=== PATIENT | male | born 1955 | race American Indian/Alaskan Native ===

== ENCOUNTER 2021-02-18 20:27 | Observation (INO) | payer MEDICARE, SELFPAY ==
[2021-02-18 21:03] LABS: Basophils % (Auto) 0.8 % (0.0-1.8); Eosinophils # (Auto) 0.1 K/mm3 (0.0-0.4); Eosinophils % (Auto) 3.2 % (0.0-4.3); Hematocrit 41.9 % (35.5-45.6); Hemoglobin 13.9 gm/dl (11.8-15.2); Lymphocytes # (Auto) 0.9 K/mm3 (1.2-5.4); Lymphocytes % (Auto) 25.4 % (13.4-35.0); Mean Corpuscular HGB Conc 33 % (32-34); Mean Corpuscular Volume 89 fl (84-94); Monocytes # (Auto) 0.4 K/mm3 (0.0-0.8); Monocytes % (Auto) 11.9 % (0.0-7.3); Platelet Count 179 K/mm3 (140-440); Red Blood Count 4.71 M/mm3 (3.65-5.03)
--- NOTE | 2021-02-18 21:11 | Emergency Department Report ---
ED Neuro Deficit HPI - General Chief Complaint: Neuro Symptoms/Deficit Stated Complaint: NO VISION LEFT EYE, RECENT BP 180/102, SOB Time Seen by Provider: 02/18/21 20:53 Source: patient, family Mode of arrival: Wheelchair Limitations: No Limitations - History of Present Illness Initial Comments: 65-year-old male with past medical history of hypertension, diabetes, CVA x2 presents emergency department with his brother who reports concern for CVA. Mr. Wong states that at 7 AM this morning he woke up feeling weak and dizzy with left-sided visual loss and facial tingling and trouble speaking for unknown duration and type and therefore was unable to cough his brother for help. When his brother did reach home in the afternoon they did phone EMS who came out and evaluated Mr. Marvin Choi as he refused to go to the hospital as they recommended. Later after further discussion it was discovered that he later was can having continued headaches and dizziness and occasional weakness so his brother decided to transport him to the emergency department via private vehicle bleeding is up until this point. Currently his vision has improved but the o ther symptoms are mixed and continues to linger -: Gradual Location: speech, left face Presenting Symptoms: Present: Blurred/Loss of Vision History of same: Yes Place: home Quality: numb, tingling, intermittant Context: gradual onset Associated Symptoms: weakness. denies: confusion, chest pain, cough, fever/chills, loss of appetite, malise, nausea/vomiting - Related Data Home Medications: Home Medications Medication Instructions Recorded Confirmed Last Taken Aspirin [Adult Aspirin] 81 mg PO QDAY 02/20/21 02/20/21 02/19/21 Clopidogrel [Plavix] 75 mg PO QDAY 02/20/21 02/20/21 02/19/21 lisinopriL [Lisinopril] 20 mg PO QDAY 02/20/21 02/20/21 02/19/21 Previous Rx's Medication Instructions Recorded Last Taken Type amLODIPine 10 mg PO QDAY 30 Days #30 tablet 02/20/21 Unknown Rx Allergies/Adverse Reactions: Allergies Allergy/AdvReac Type Severity Reaction Status Date / Time No Known Allergies Allergy Verified 02/18/21 20:40 ED Review of Systems ROS: Stated complaint: NO VISION LEFT EYE, RECENT BP 180/102, SOB Other details as noted in HPI Comment: All other systems reviewed and negative ED Past Medical Hx - Past Medical History Hx Hypertension: Yes Hx CVA: Yes Hx Congestive Heart Failure: No Hx Diabetes: Yes Hx Asthma: No Hx COPD: No Additional medical history: Ulcer, CVA X 2 - Surgical History Past Surgical History?: No Additional Surgical History: Bleeding ulcer - Social History Smoking Status: Former Smoker - Medications Home Medications: Home Medications Medication Instructions Recorded Confirmed Last Taken Type Aspirin [Adult Aspirin] 81 mg PO QDAY 02/20/21 02/20/21 02/19/21 History Clopidogrel [Plavix] 75 mg PO QDAY 02/20/21 02/20/21 02/19/21 History amLODIPine 10 mg PO QDAY 30 Days #30 tablet 02/20/21 Unknown Rx lisinopriL [Lisinopril] 20 mg PO QDAY 02/20/21 02/20/21 02/19/21 History ED Neuro Physical Exam - General Limitations: No Limitations General appearance: alert, in no apparent distress Suspected Stroke: Yes - Head Head exam: Present: atraumatic, normocephalic - Eye Eye exam: Present: normal appearance, PERRL, EOMI, other (Haziness to the left eye with some ptosis noted. No swelling no tenderness). Absent: periorbital swelling, periorbital tenderness Pupils: Present: normal accommodation - ENT ENT exam: Present: normal exam, normal orophraynx, mucous membranes moist - Neck Neck exam: Present: normal inspection - Respiratory Respiratory exam: Present: normal lung sounds bilaterally. Absent: respiratory distress - Cardiovascular Cardiovascular Exam: Present: regular rate, normal rhythm. Absent: systolic murmur, diastolic murmur, rubs, gallop - GI/Abdominal GI/Abdominal exam: Present: soft, normal bowel sounds - Rectal Rectal exam: Present: deferred - Extremities Exam Extremities exam: Present: normal inspection - Back Exam Back exam: Present: normal inspection - Neurological Exam Neurological exam: Present: alert, oriented X3 - NIHSS Assessment Interval: Baseline 1a. Level of Consciousness: alert/keenly responsive 1b. LOC Questions: answers both correctly 1c. LOC Commands: performs tasks correctly 2. Best Gaze: normal 3. Visual: no visual loss 4. Facial Palsy: normal symmetrical movement 5b. Motor Arm Right: no drift 5a. Motor Arm Left: no drift 6a. Motor Leg Left: some gravity effort 6b. Motor Leg Right: no drift 7. Limb Ataxia: absent 8. Sensory: normal 9. Best Language: no aphasia 10. Dysarthria: normal 11. Extinction/Inattention: no abnormality Total Score: 2 Stroke Severity: Minor Stroke - Psychiatric Psychiatric exam: Present: normal affect, normal mood - Skin Skin exam: Present: warm, dry, intact, normal color. Absent: rash, diaphoretic, erythema, pallor, abrasion, ecchymosis ED Course Vital Signs 02/18/21 02/18/21 02/18/21 20:33 20:35 21:20 Temperature 97.6 F 98.9 F Pulse Rate 90 Respiratory 18 Rate Blood Pressure 208/110 Blood Pressure [Right] O2 Sat by Pulse 93 97 Oximetry 02/18/21 02/18/21 02/19/21 22:43 23:15 00:02 Temperature Pulse Rate 83 78 78 Respiratory 14 15 23 Rate Blood Pressure Blood Pressure 214/112 185/94 174/97 [Right] O2 Sat by Pulse 99 97 98 Oximetry 02/19/21 02/19/21 02/19/21 00:25 00:30 00:40 Temperature Pulse Rate 69 68 69 Respiratory 18 19 18 Rate Blood Pressure 174/97 174/97 174/97 Blood Pressure [Right] O2 Sat by Pulse 99 99 97 Oximetry 02/19/21 02/19/21 02/19/21 00:50 01:00 01:01 Temperature Pulse Rate 68 62 62 Respiratory 22 19 20 Rate Blood Pressure 174/97 Blood Pressure 186/99 [Right] O2 Sat by Pulse 99 99 99 Oximetry 02/19/21 02/19/21 02/19/21 01:11 01:21 01:31 Temperature Pulse Rate 61 61 78 Respiratory 19 19 21 Rate Blood Pressure 174/97 174/97 174/97 Blood Pressure [Right] O2 Sat by Pulse 99 97 97 Oximetry 02/19/21 02/19/21 02/19/21 01:41 01:51 02:01 Temperature Pulse Rate 67 67 67 Respiratory 20 11 L 17 Rate Blood Pressure 174/97 180/93 180/93 Blood Pressure [Right] O2 Sat by Pulse 100 99 99 Oximetry 02/19/21 02/19/21 02/19/21 02:11 02:21 02:31 Temperature Pulse Rate 63 60 61 Respiratory 22 19 19 Rate Blood Pressure 180/93 180/93 180/93 Blood Pressure [Right] O2 Sat by Pulse 100 96 96 Oximetry 02/19/21 02/19/21 02/19/21 02:41 02:51 03:17 Temperature Pulse Rate 79 80 64 Respiratory 22 19 18 Rate Blood Pressure 180/93 169/99 Blood Pressure 169/99 [Right] O2 Sat by Pulse 95 97 98 Oximetry - Lab Data Result diagrams: 02/18/21 20:52 02/18/21 20:52 Lab Results 02/18/21 02/18/21 02/18/21 Range/Units 20:52 20:52 20:52 WBC 3.7 L (4.5-11.0) K/mm3 RBC 4.71 (3.65-5.03) M/mm3 Hgb 13.9 (11.8-15.2) gm/dl Hct 41.9 (35.5-45.6) % MCV 89 (84-94) fl MCH 30 (28-32) pg MCHC 33 (32-34) % RDW 14.0 (13.2-15.2) % Plt Count 179 (140-440) K/mm3 Lymph % (Auto) 25.4 (13.4-35.0) % [place] % (Auto) 11.9 H (0.0-7.3) % Eos % (Auto) 3.2 (0.0-4.3) % Baso % (Auto) 0.8 (0.0-1.8) % Lymph # (Auto) 0.9 L (1.2-5.4) K/mm3 [place] # (Auto) 0.4 (0.0-0.8) K/mm3 Eos # (Auto) 0.1 (0.0-0.4) K/mm3 Baso # (Auto) 0.0 (0.0-0.1) K/mm3 Seg Neutrophils % 58.7 (40.0-70.0) % Seg Neutrophils # 2.2 (1.8-7.7) K/mm3 PT 13.4 (12.2-14.9) Sec. INR 0.92 (0.87-1.13) APTT 29.0 (24.2-36.6) Sec. Thrombin Time 18.4 (15.1-19.6) Sec. Sodium (137-145) mmol/L Potassium (3.6-5.0) mmol/L Chloride (98-107) mmol/L Carbon Dioxide (22-30) mmol/L Anion Gap mmol/L BUN (9-20) mg/dL Creatinine (0.8-1.3) mg/dL Estimated GFR ml/min BUN/Creatinine Ratio % Glucose (75-100) mg/dL POC Glucose (70-105) mg/dL Calcium (8.4-10.2) mg/dL Total Creatine Kinase 135 (55-170) units/L CK-MB (CK-2) 2.8 (0.0-4.0) ng/mL CK-MB (CK-2) Rel Index 2.0 (0-4) Troponin T < 0.010 (0.00-0.029) ng/mL 02/18/21 02/18/21 Range/Units 20:52 20:54 WBC (4.5-11.0) K/mm3 RBC (3.65-5.03) M/mm3 Hgb (11.8-15.2) gm/dl Hct (35.5-45.6) % MCV (84-94) fl MCH (28-32) pg MCHC (32-34) % RDW (13.2-15.2) % Plt Count (140-440) K/mm3 Lymph % (Auto) (13.4-35.0) % [place] % (Auto) (0.0-7.3) % Eos % (Auto) (0.0-4.3) % Baso % (Auto) (0.0-1.8) % Lymph # (Auto) (1.2-5.4) K/mm3 [place] # (Auto) (0.0-0.8) K/mm3 Eos # (Auto) (0.0-0.4) K/mm3 Baso # (Auto) (0.0-0.1) K/mm3 Seg Neutrophils % (40.0-70.0) % Seg Neutrophils # (1.8-7.7) K/mm3 PT (12.2-14.9) Sec. INR (0.87-1.13) APTT (24.2-36.6) Sec. Thrombin Time (15.1-19.6) Sec. Sodium 139 (137-145) mmol/L Potassium 4.2 (3.6-5.0) mmol/L Chloride 100.9 (98-107) mmol/L Carbon Dioxide 23 (22-30) mmol/L Anion Gap 19 mmol/L BUN 22 H (9-20) mg/dL Creatinine 1.3 (0.8-1.3) mg/dL Estimated GFR > 60 ml/min BUN/Creatinine Ratio 17 % Glucose 113 H (75-100) mg/dL POC Glucose 99 (70-105) mg/dL Calcium 9.4 (8.4-10.2) mg/dL Total Creatine Kinase (55-170) units/L CK-MB (CK-2) (0.0-4.0) ng/mL CK-MB (CK-2) Rel Index (0-4) Troponin T < 0.010 (0.00-0.029) ng/mL - Radiology Data Radiology results: report reviewed [facility] [address] [place] [address] Cat Scan Report Signed Patient: MARVIN CHOI MR#: [id number] : 1955 Acct:[id number] Age/Sex: 65 / M ADM Date: 02/18/21 Loc: ED Attending Dr: Ordering Physician: JOSHUA MARADIAGA Date of Service: 02/18/21 Procedure(s): CT angio head Accession Number(s): [id number] cc: JOSHUA MARADIAGA CTA NECK WITH CONTRAST HISTORY: Acute neurologic deficit; new intervention COMPARISON: None. TECHNIQUE: Routine CTA of the neck was performed. 3-D/MIP reformats were postprocessed. Percentage stenosis is determined by direct quantitative measurements of diseased internal carotid artery diameter compared with normal distal internal carotid artery reference segments or by criteria similar to NASCET where applicable.All CT scans at this location are performed using CT dose reduction for ALARA by means of automated exposure control CONTRAST: 100 ml of Omnipaque 350 FINDINGS: Aortic arch: No significant abnormality. Cervical vertebral arteries: No significant abnormality. Common carotid arteries: No significant abnormality. Carotid bifurcations: Normal Cervical internal carotid arteries: No significant abnormality. Additional findings: None. IMPRESSION: 1. No significant abnormality. CTA HEAD WITH CONTRAST FINDINGS: CTA Head: Intracranial vertebral arteries: Left vertebral artery is the dominant artery and continues as basilar artery. Distal right vertebral artery narrows significantly after region of right PICA Basilar artery: Atherosclerotic changes in the basilar artery with mild narrowing Posterior cerebral arteries: No significant abnormality. Minimal luminal narrowing in the P2 segment bilaterally Intracranial internal carotid arteries: Normal from skull base to terminus Anterior cerebral arteries: No significant abnormality. Middle cerebral arteries: No significant abnormality. In the branches of the middle cerebral artery in the sylvian fissure, luminal narrowing is seen at multiple sites; there may be chronic branch occlusion with convexity collateral circulation Dural venous sinuses:Not optimally opacified. No significant abnormality. Additional findings: None. IMPRESSION: Atherosclerotic narrowing in the distal intracranial right vertebral artery, P2 segment of both posterior cerebral arteries, branches of middle cerebral artery bilaterally in t he sylvian fissure and to a lesser degree in the basilar artery No large vessel occlusion Signer Name: Marleny Gunter MD Signed: 02/18/2021 11:16 PM Workstation Name: [id number] Transcribed By: BS Dictated By: Marleny Calderon MD Electronically Authenticated By: Marleny Calderon MD Signed Date/Time: 02/18/212315 DD/ 58 TD/TT: [facility] [address] [place] [address] Cat Scan Report Signed Patient: MARVIN CHOI MR#: [id number] : 1955 Acct:[id number] Age/Sex: 65 / M ADM Date: 02/18/21 Loc: ED Attending Dr: Ordering Physician: ALTAF IRWIN MD Date of Service: 02/18/21 Procedure(s): CT head/brain wo con Accession Number(s): [id number] cc: ALTAF IRWIN MD NONENHANCED CT SCAN OF THE HEAD: INDICATION / CLINICAL INFORMATION: 65 years Male; neuro deficits <6hrs or sx present upon awakening. TECHNIQUE: Routine CT head without contrast. All CT scans at this location are performed using CT dose reduction for ALARA by means of automated exposure control. COMPARISON: CT scan of the head from 05/24/2013 FINDINGS: BRAIN / INTRACRANIAL CONTENTS: No intracerebral hemorrhage or stroke mimics No acute hemorrhage, mass effect, midline shift, hydrocephalus, or acute, large territorial infarct. Encephalomalacia in the right parietal lobe border zone, left parietal lobe adjacent to paracentral lobule, left thalamus; since the last CT scan, both frontal horns are generous due to compensatory enlargement from chronic caudate ischemia. CRANIOCERVICAL JUNCTION: Mild tonsillar ectopia ORBITS: No significant abnormality of visualized orbits. SINUSES / MASTOIDS: No significant abnormality of the visualized paranasal sinuses or mastoid air cells. ADDITIONAL FINDINGS: None. IMPRESSION: No intracerebral hemorrhage or stroke mimics Multiple areas of chronic ischemia in both cerebral hemispheres since the previous CT scan from 2013 CODE STROKE: Time of Communication (SEARCH COORDINATOR/CDT): 8:18 PM Licensed Practitioner Receiving Report: Dr. Altaf Irwin. Signer Name: Marleny Gunter MD Signed: 02/18/2021 9:19 PM Workstation Name: [id number] Transcribed By: BS Dictated By: Marleny Calderon MD Electronically Authenticated By: Marleny Calderon MD Signed Date/Time: 02/18/212118 DD/ 11 TD/TT: - Medical Decision Making This 65-year-old male presents with symptoms concerning for acute CVA versus TIA. Other items on the differential includes dissection, acute myocardial infarction, hypoglycemia or other metabolic derangement such as hepatic or uremic encephalopathy, medication side effect or post Naima Jm's paralysis. However the presentation most concerning for CVA. EKG without evidence of STEMI or ischemia, definitive blood sugar is not hypoglycemic, and clinical culture does not suggest other stroke. Did a work-up for CVA and TIA the CT angiogram did not show any occlusive properties or bleeds. Code stroke was obtained labs not have any concerning factors. Plan will admit for observation to the hospitalist and have a TIA wound work-up and neuro checks. Critical care attestation.: If time is entered above; I have spent that time in minutes in the direct care of this critically ill patient, excluding procedure time. ED Disposition Clinical Impression: Headache, TIA (transient ischemic attack), HTN (hypertension) Disposition: 09 ADMITTED INPATIENT Is pt being admited?: Yes Does the pt Need Aspirin: No Condition: Stable
[2021-02-18 21:13] LABS: INR 0.92 (0.87-1.13)
[2021-02-18 21:14] LABS: Thrombin Time 18.4 Sec. (15.1-19.6)
[2021-02-18 21:17] LABS: BUN/Creatinine Ratio 17; Blood Urea Nitrogen 22 mg/dL (9-20); Calcium 9.4 mg/dL (8.4-10.2); Hemolysis Index 7
[2021-02-18 21:19] LABS: Creatine Kinase MB 2.8 ng/mL (0.0-4.0)
--- NOTE | 2021-02-18 21:23 | Cat Scan Report ---
NONENHANCED CT SCAN OF THE HEAD: INDICATION / CLINICAL INFORMATION: 65 years Male; neuro deficits <6hrs or sx present upon awakening. TECHNIQUE: Routine CT head without contrast. All CT scans at this location are performed using CT dos e reduction for ALARA by means of automated exposure control. COMPARISON: CT scan of the head from 05/24/2013 FINDINGS: BRAIN / INTRACRANIAL CONTENTS: No intracerebral hemorrhage or stroke mimics No acute hemorrhage, mass effect, midline shift, hydrocephalus, or acute, large territorial infarct. Encephalomalacia in the right parietal lobe border zone, left parietal lobe adjacent to paracentral lobule, left thalamus; since the last CT scan, both frontal horns are generous due to compensatory en largement from chronic caudate ischemia. CRANIOCERVICAL JUNCTION: Mild tonsillar ectopia ORBITS: No significant abnormality of visualized orbits. SINUSES / MASTOIDS: No significant abnormality of the visualized paranasal sinuses or mastoid air rivas ls. ADDITIONAL FINDINGS: None. IMPRESSION: No intracerebral hemorrhage or stroke mimics Multiple areas of chronic ischemia in both cerebral hemispheres since the previous CT scan from 2013 CODE STROKE: Time of Communication (HOTEL FRONT OFFICE MANAGER/CDT): 8:18 PM Licensed Practitioner Receiving Report: Dr. Altaf Irwin. Signer Name: Marleny Gunter MD Signed: 02/18/2021 9:19 PM Workstation Name: [id number]
--- NOTE | 2021-02-18 23:21 | Cat Scan Report ---
CTA NECK WITH CONTRAST HISTORY: Acute neurologic deficit; new intervention COMPARISON: None. TECHNIQUE: Routine CTA of the neck was performed. 3-D/MIP reformats were postprocessed. Percentage s tenosis is determined by direct quantitative measurements of diseased internal carotid artery diamete r compared with normal distal internal carotid artery reference segments or by criteria similar to NA SCET where applicable.All CT scans at this location are performed using CT dose reduction for ALARA b y means of automated exposure control CONTRAST: 100 ml of Omnipaque 350 FINDINGS: Aortic arch: No significant abnormality. Cervical vertebral arteries: No significant abnormality. Common carotid arteries: No significant abnormality. Carotid bifurcations: Normal Cervical internal carotid arteries: No significant abnormality. Additional findings: None. IMPRESSION: 1. No significant abnormality. CTA HEAD WITH CONTRAST FINDINGS: CTA Head: Intracranial vertebral arteries: Left vertebral artery is the dominant artery and continues as basila r artery. Distal right vertebral artery narrows significantly after region of right PICA Basilar artery: Atherosclerotic changes in the basilar artery with mild narrowing Posterior cerebral arteries: No significant abnormality. Minimal luminal narrowing in the P2 segment bilaterally Intracranial internal carotid arteries: Normal from skull base to terminus Anterior cerebral arteries: No significant abnormality. Middle cerebral arteries: No significant abnormality. In the branches of the middle cerebral artery in the sylvian fissure, luminal narrowing is seen at mu ltiple sites; there may be chronic branch occlusion with convexity collateral circulation Dural venous sinuses:Not optimally opacified. No significant abnormality. Additional findings: None. IMPRESSION: Atherosclerotic narrowing in the distal intracranial right vertebral artery, P2 segment of both poste rior cerebral arteries, branches of middle cerebral artery bilaterally in the sylvian fissure and to a lesser degree in the basilar artery No large vessel occlusion Signer Name: Marleny Gunter MD Signed: 02/18/2021 11:16 PM Workstation Name: [id number]
[2021-02-19] MEDS ORDERED: ASPIRIN 325 MG TAB PO ONE (00:59)
[2021-02-19] MEDS ORDERED: ONDANSETRON 4 MG/2 ML INJ IV PRN ×2 (01:59)
[2021-02-19] MEDS ORDERED: ACETAMINOPHEN 325 MG TAB PO PRN ×2 (01:59)
[2021-02-19] MEDS ORDERED: METOCLOPRAMIDE 10 MG TAB PO PRN (01:59)
[2021-02-19] MEDS ORDERED: MORPHINE 2 MG/1 ML INJ IV PRN (01:59)
[2021-02-19] MEDS ORDERED: MAGNESIUM HYDROXIDE (MOM) ORAL LIQD UDC PO PRN ×2 (01:59)
[2021-02-19] MEDS ORDERED: MORPHINE 4 MG/1 ML INJ IV PRN (01:59)
[2021-02-19] MEDS ORDERED: PROMETHAZINE 25 MG RECT SUPP PR PRN (01:59)
--- NOTE | 2021-02-19 02:15 | History and Physical Report ---
History of Present Illness Date of examination: 02/19/21 Date of admission: 02/19/2021 Chief complaint: Headache Left-sided weakness Visual impairment History of present illness: 65-year-old male with known history of hypertension, CVA in the past presents to the emergency room today accompanied by his brother complaining of weakness and dizziness with left-sided weakness which started earlier this morning. EMS was said to have been called earlier in the day but the patient declined to be brought to the emergency room. Patient was said to have been having headache and dizziness thereafter and therefore decided to report to the emergency room for further evaluation. Patient states that he has been having blurry vision on his left eye and has been having tingling sensation and numbness in the left upper extremity. However upon arrival in the emergency room symptoms had resolved. However blood pressure was elevated with systolic in the 180s. Work-up in the emergency room today CT angiogram of the head and neck and CT of the head has been unremarkable. Past History Past Medical History: hypertension, stroke (X2), other (Peptic ulcer disease) Past Surgical History: Other (Surgery for bleeding ulcer) Social history: smoking (Former smoker) Family history: no significant family history Medications and Allergies Allergies Allergy/AdvReac Type Severity Reaction Status Date / Time No Known Allergies Allergy Verified 02/18/21 20:40 Home Medications Medication Instructions Recorded Confirmed Last Taken Type Cefuroxime Axetil [Ceftin] 500 mg PO Q12H #6 tablet 05/27/13 Unknown Rx Pantoprazole [Protonix] 40 mg PO QDAY #30 tablet 05/27/13 Unknown Rx Ferrous Sulfate [Slow Release Iron 140 mg PO DAILY #30 tablet.er 09/30/13 Unknown Rx 140mg tab] hydroCHLOROthiazide [Hctz] 25 mg PO QDAY #90 tablet 09/30/13 Unknown Rx Review of Systems Constitutional: no fever, no chills Ears, nose, mouth and throat: no nasal congestion, no sore throat Cardiovascular: no chest pain, no palpitations Respiratory: no cough, no shortness of breath Gastrointestinal: no abdominal pain, no nausea, no vomiting, no diarrhea Genitourinary Male: no dysuria, no hematuria, no flank pain, no nocturia Musculoskeletal: no neck pain, no low back pain Integumentary: no rash, no pruritis Neurological: weakness, numbness, tingling, headaches, change in speech, loss of vision Psychiatric: no anxiety, no depression Endocrine: no polyphagia, no polydipsia, no polyuria, no nocturia Exam - Constitutional Vitals: Temp Pulse Resp BP Pulse Ox 98.9 F 62 19 186/99 99 02/18/21 20:35 02/19/21 01:00 02/19/21 01:00 02/19/21 01:00 02/19/21 01:00 General appearance: Present: no acute distress, well-nourished - EENT Eyes: Present: PERRL, EOM intact. Absent: scleral icterus ENT: hearing intact, clear oral mucosa, dentition normal - Neck Neck: Present: supple, normal ROM - Respiratory Respiratory effort: normal Respiratory: bilateral: CTA - Cardiovascular Rhythm: regular Heart Sounds: Present: S1 & S2. Absent: systolic murmur, diastolic murmur, rub, click - Extremities Extremities: no ischemia, pulses intact, pulses symmetrical, No edema, normal temperature, normal color, Full ROM Peripheral Pulses: within normal limits - Abdominal General gastrointestinal: Present: soft, non-tender, non-distended, normal bowel sounds. Absent: mass - Integumentary Integumentary: Present: clear, warm, dry. Absent: rash - Musculoskeletal Musculoskeletal: strength equal bilaterally - Psychiatric Psychiatric: appropriate mood/affect, intact judgment & insight, memory intact, cooperative - Neurologic Neurologic: CNII-XII intact, no focal deficits, moves all extremities HEART Score - HEART Score Troponin: Troponin T < 0.010 ng/mL (0.00-0.029) 02/18/21 20:52 Troponin T < 0.010 ng/mL (0.00-0.029) 02/18/21 20:52 Results - Labs CBC & Chem 7: 02/18/21 20:52 02/18/21 20:52 Labs: Abnormal lab results 02/18/21 02/18/21 Range/Units 20:52 20:52 WBC 3.7 L (4.5-11.0) K/mm3 [place] % (Auto) 11.9 H (0.0-7.3) % Lymph # (Auto) 0.9 L (1.2-5.4) K/mm3 BUN 22 H (9-20) mg/dL Glucose 113 H (75-100) mg/dL Assessment and Plan - Patient Problems (1) TIA (transient ischemic attack) Current Visit: Yes Status: Acute Plan to address problem: Patient admitted and placed on telemetry. We will schedule for MRI of the brain. Consult placed to neurology for evaluation. (2) Headache Current Visit: Yes Status: Acute Plan to address problem: Etiology is unclear. Meanwhile placed on analgesic medication. Await further evaluation by neurology. (3) DVT prophylaxis Current Visit: No Status: Acute Plan to address problem: Patient placed on subcutaneous heparin. (4) Full code status Current Visit: Yes Status: Acute Plan to address problem: Patient is full code.
[2021-02-19] MEDS: HEPARIN 5,000 UNIT/1 ML VIAL SUB-Q SCH ×3 (08:18→22:28)
[2021-02-19] MEDS: PANTOPRAZOLE 40 MG TAB PO SCH (08:24)
--- NOTE | 2021-02-19 11:16 | Magnetic Resonance Report ---
MRI BRAIN WITHOUT CONTRAST INDICATION / CLINICAL INFORMATION: stroke, weakness, difficulty walking. TECHNIQUE: Multiplanar, multisequence MR images of the brain were obtained. COMPARISON: Head CT on 02/18/2021 FINDINGS: BRAIN / INTRACRANIAL CONTENTS: No acute ischemia, acute hemorrhage, mass effect, midline shift, or hy drocephalus. There is stable multifocal areas of chronic infarct in the bilateral parietal convexiti es and mesial left frontal lobe. There is stable severe chronic small vessel ischemic change in the c erebral white matter. There are stable small chronic infarcts in the right cerebellar hemisphere. CRANIOCERVICAL JUNCTION: No significant abnormality. VASCULAR FLOW-VOIDS: No significant abnormality. ORBITS: No significant abnormality of visualized orbits. SINUSES / MASTOIDS: No significant abnormality of visualized sinuses and mastoid air cells. ADDITIONAL FINDINGS: None. IMPRESSION: 1. No evidence of acute infarct. Stable appearance of multiple areas of chronic infarct. Signer Name: Trey Martin MD Signed: 02/19/2021 11:12 AM Workstation Name: [id number]
[2021-02-19] MEDS: ASPIRIN 325 MG TAB PO SCH (11:20)
[2021-02-19] MEDS: hydroCHLOROthiazide 25 MG TAB PO SCH (11:21)
--- NOTE | 2021-02-19 13:47 | Event Note ---
Date: 02/19/21 Patient seen and examined after return from MRI. On echocardiogram, LVEF found to be 45 to 50% with concentric left ventricular hypertrophy. MRI was negative for acute infarct. Carotid ultrasound pending. Patient reports presenting neurological symptoms to be resolved. Evaluated by physical and speech therapy. Recommendation for cane at discharge.
--- NOTE | 2021-02-19 14:57 | Consultation ---
History of Present Illness Consult date: 02/19/21 Reason for Consult: CVA Chief complaint: Left-sided numbness History of present illness: 65 yo male with htn, cva x2 (w/ same exact symptoms as this time with no residual), pudx who presents where he woke up yesterday morning with weakness and numbness of the left arm/leg. Noted also with headache and vertigo later on in the day which prompted him to come to the hospital. Past History Past Medical History: hypertension, stroke (X2), other (Peptic ulcer disease) Past Surgical History: Other (Surgery for bleeding ulcer) Social history: smoking (Former smoker) Family history: no significant family history Medications and Allergies Allergies Allergy/AdvReac Type Severity Reaction Status Date / Time No Known Allergies Allergy Verified 02/18/21 20:40 Home Medications Medication Instructions Recorded Confirmed Last Taken Type Cefuroxime Axetil [Ceftin] 500 mg PO Q12H #6 tablet 05/27/13 02/19/21 02/18/21 Rx Pantoprazole [Protonix] 40 mg PO QDAY #30 tablet 05/27/13 02/19/21 02/18/21 Rx Ferrous Sulfate [Slow Release Iron 140 mg PO DAILY #30 tablet.er 09/30/13 02/19/21 02/18/21 Rx 140mg tab] hydroCHLOROthiazide [Hctz] 25 mg PO QDAY #90 tablet 09/30/13 02/19/21 02/18/21 Rx Active Meds: Active Medications Acetaminophen (Acetaminophen 325 Mg Tab) 650 mg PO Q4H PRN PRN Reason: Pain MILD(1-3)/Fever >100.5/FERNANDEZ Aspirin (Aspirin 325 Mg Tab) 325 mg PO QDAY [facility] Last Admin: 02/19/21 11:20 Dose: 325 mg Documented by: Bisacodyl (Bisacodyl 10 Mg Rect Supp) 10 mg [place] QDAY PRN PRN Reason: Constipation Heparin Sodium (Porcine) (Heparin 5,000 Unit/1 Ml Vial) 5,000 unit SUB-Q Q8HR [facility] Last Admin: 02/19/21 08:18 Dose: Not Given Documented by: Hydrochlorothiazide (Hydrochlorothiazide 25 Mg Tab) 25 mg PO QDAY [facility] Last Admin: 02/19/21 11:21 Dose: 25 mg Documented by: Magnesium Hydroxide (Magnesium Hydroxide (Mom) Oral Liqd Udc) 30 ml PO Q4H PRN PRN Reason: Constipation Metoclopramide HCl (Metoclopramide 10 Mg Tab) 10 mg PO Q6H PRN PRN Reason: Nausea And Vomiting Morphine Sulfate (Morphine 2 Mg/1 Ml Inj) 2 mg IV Q4H PRN PRN Reason: Pain, Moderate (4-6) Morphine Sulfate (Morphine 4 Mg/1 Ml Inj) 4 mg IV Q4H PRN PRN Reason: Pain , Severe (7-10) Ondansetron HCl (Ondansetron 4 Mg/2 Ml Inj) 4 mg IV Q8H PRN PRN Reason: Nausea And Vomiting Pantoprazole Sodium (Pantoprazole 40 Mg Tab) 40 mg PO QDAC [facility] Last Admin: 02/19/21 08:24 Dose: Not Given Documented by: Promethazine HCl (Promethazine 25 Mg Rect Supp) 25 mg [place] Q6H PRN PRN Reason: Nausea And Vomiting Sodium Chloride (Sodium Chloride 0.9% 10 Ml Flush Syringe) 10 ml IV BID [facility] Last Admin: 02/19/21 11:21 Dose: 10 ml Documented by: Sodium Chloride (Sodium Chloride 0.9% 10 Ml Flush Syringe) 10 ml IV PRN PRN PRN Reason: LINE FLUSH Review of Systems All systems: negative (as per HPI;) Physical Examination - Vital Signs Vital Signs: Vital Signs Temp Pulse Resp BP Pulse Ox 97.6 F 90 18 208/110 93 02/18/21 20:33 02/18/21 20:33 02/18/21 20:33 02/18/21 20:33 02/18/21 20:33 - Physical Exam Narrative exam: Gen: nad, well-nourished; Head: normocephalic; Eyes: no gaze deviation; no ptosis; ENT: normal vocalization; CVS: warm and well-perfused; Pulm: no respiratory distress; GI: appears non-distended, protuberant; Ext: no cyanosis appreciated at distal extremities; Skin: no acute rash appreciated at distal extremities; Heme: no pathologic bruising appreciated at distal extremities; Neuro: alert, oriented to name, age, month, year, surroundings, no dysarthria, no aphasia, CN 2 - PERRL, visual reese grossly intact, CN 3, 4, 6 - EOMI, CN 5 - facial sensation symmetric to light touch, CN 7 - facial movement symmetric, CN 8 - hearing grossly intact, CN 9, 10 - uvula midline, CN 11 - shrug symmetric, CN 12 - tongue midline; Motor - at least 5-/5 at right and at least 4+/5 at left exts; Sensory - light touch symmetric, Cerebellar - fnf /hts intact, Gait - deferred secondary to fall risk; NIHSS (1a.) Level of Consciousness:0 (1b.) LOC Questions:0 (1c.) LOC Commands:0 (2.) Best Gaze:0 (3.) Visual:0 (4.) Facial Palsy:0 (5a.) Motor Arm, Left:0 (5b.) Motor Arm, Right:0 (6a.) Motor Leg, Left:0 (6b.) Motor Leg, Right:0 (7.) Limb Ataxia:0 (8.) Sensory:0 (9.) Best Language:0 (10.) Dysarthria:0 (11.) Extinction and Inattention:0 NIHSS Total Score:0 Results - Laboratory Findings CBC and BMP: 02/18/21 20:52 02/18/21 20:52 Abnormal Lab Findings: Abnormal Labs 02/18/21 02/18/21 02/19/21 20:52 20:52 13:12 WBC 3.7 L [place] % (Auto) 11.9 H Lymph # (Auto) 0.9 L BUN 22 H Glucose 113 H Vitamin B12 1062 H Assessment and Plan 65 yo male with htn, cva x2 (w/ same exact symptoms as this time with no residual), pudx who presents where he woke up yesterday morning with weakness and numbness of the left arm/leg. Noted also with headache and vertigo later on in the day which prompted him to come to the hospital. 1. TIA vs. Recrudescence of Previous Stroke: ASA 81 mg PO qday, Plavix 75 mg po qday (pt is on dual antiplatelet therapy at home); normal MRI/CTA; EF of 45% on TTEcho, LDL/Covid-19/UDS, baseline CXR, aim for normotension. Statin therapy for a goal LDL of 70, when patient passes swallow evaluation. PT/OT/ST/Swallow evaluation. Long-term risk-factor modification, including a strict diet/exercise regimen for secondary stroke prophylaxis. 2. Hypertension - aim for normotension. 3. Mild Left-sided weakness - pt/ot evaluation/monitoring. 4. Unsteady Gait - pt/ot evaluation/monitoring, however pt was feeling light- headed during this test. 5. Orthostatic Dizziness - per primary team. 6. Followup with Neurology/Stroke clinic in 4 to 6 weeks. Maykel Nesbitt MD Neurology [id number]
--- NOTE | 2021-02-19 16:37 | Vascular Lab Report ---
DUPLEX DOPPLER ULTRASOUND CAROTID, BILATERAL INDICATION / CLINICAL INFORMATION: stroke. COMPARISON: None available. FINDINGS: RIGHT CAROTID: - PLAQUE ESTIMATE (%): < 50% - CCA velocity: 39 cm/sec. - ICA peak systolic velocity: 59 cm/sec. - ICA/CCA PSV Ratio: 1.49 Right Vertebral Artery: Antegrade flow. LEFT CAROTID: - PLAQUE ESTIMATE: < 50% - CCA velocity: 37 cm/sec. - ICA peak systolic velocity: 62 cm/sec. - ICA/CCA PSV Ratio: 1.8 Left Vertebral Artery: Antegrade flow. IMPRESSION: 1. Right Internal Carotid Artery: Less than 50% diameter stenosis. 2. Left Internal Carotid Artery: Less than 50% diameter stenosis. Plaque in right carotid bifurcation Velocity criteria are extrapolated from diameter data as defined by the Society of Radiologists in Ul trasound Consensus Conference, Radiology 2003; 229;340-346. NO STENOSIS (NORMAL) * Plaque = none; ICA PSV < 125 cm/sec; ICA/CCA PSV Ratio < 2.0 <50% STENOSIS * Plaque < 50%; ICA PSV < 125 cm/sec; ICA/CCA PSV Ratio < 2.0 50-69% STENOSIS * Plaque > 50%; ICA PSV = 125-230 cm/sec; ICA/CCA PSV Ratio = 2.0-4.0 >70% BUT <100% STENOSIS * Plaque > 50%; ICA PSV > 230 cm/sec; ICA/CCA PSV Ratio > 4.0 NEAR OCCLUSION * Plaque = visible lumen; ICA PSV = high/low/none; ICA/CCA PSV Ratio = variable TOTAL OCCLUSION * Plaque = no lumen; ICA PSV = none; ICA/CCA PSV Ratio = N/A Signer Name: Darryn Peña MD Signed: 02/19/2021 4:32 PM Workstation Name: [id number]
[2021-02-20] MEDS: HEPARIN 5,000 UNIT/1 ML VIAL SUB-Q SCH ×2 (06:40→14:05)
[2021-02-20 06:58] LABS: Chol/HDL Ratio 3.22 %
--- NOTE | 2021-02-20 08:27 | Discharge Summary ---
Providers - Providers Date of Admission: 02/19/21 01:59 Date of discharge: 02/20/21 Attending physician: COOPER CARRANZA MD 02/19/21 01:59 Consult to Physician [CONS] Routine Comment: Consulting Provider: ASHLEY PEREZ Physician Instructions: Reason For Exam: LEFT SIDED WEAKNESS, HEADACHE 02/19/21 02:01 Consult to Dietitian/Nutrition [CONS] Routine Physician Instructions: Reason For Exam: Reason for Consult: Nutrition Recommendations Reason for Consult: Diet education Occupational Therapy Evaluate and Treat [CONS] Routine Comment: Reason For Exam: Neuro deficits Physical Therapy Evaluation and Treat [CONS] Routine Comment: Reason For Exam: Neuro deficits 02/19/21 02:05 Speech Therapy Evaluation and Treat [CONS] Routine Reason For Exam: swallow eval Primary care physician: [employer] Hospitalization Reason for admission: Left-sided weakness and dizziness Condition: Stable Hospital course: This is a 65-year-old male history of hypertension and CVA who was brought in with complaints of left-sided weakness and dizziness x1 day. CT head, CT angiogram of head and neck were unremarkable. Neurology was consulted. MRI of the brain was negative. Patient symptoms spontaneously resolved. Patient was discharged home in care of family. Disposition: 01 HOME / SELF CARE / HOMELESS Final Discharge Diagnosis (Prints w/discharge instructions): TIA Time spent for discharge: 10 minutes Core Measure Documentation - Palliative Care Palliative Care/ Comfort Measures: Not Applicable - Core Measures Any of the following diagnoses?: stroke - Stroke Discharge Requirements Statin for LDL = or >70 mg/dl on DC: Yes Anticoag for atrial fib/atrial flutter: Not Applicable Antithrombotic for ischemic stroke: No Reason for no antithrombotic on DC: Not Indicated Exam - Constitutional Vitals: Temp Pulse Resp BP Pulse Ox 97.9 F 69 16 185/108 97 02/20/21 04:08 02/20/21 04:08 02/20/21 04:08 02/20/21 04:08 02/20/21 04:08 Plan Care Plan Goals: Start taking all medications every day. It is important that your blood pressure is controlled to reduce the risk of stroke. Follow-up with primary care in 1 week. Have primary care to refer you to neurology, you will need a follow-up appointment in 4 to 6 weeks. Assessment: Symptoms resolved. Likely TIA versus recrudescence of old stroke. All imaging negative for acute abnormalities. Patient started on statin. Assessed by physical therapy and discharged with a cane. Discharged home in the care of family. Follow up with: PRIMARY CAREMD [Primary Care Provider] - 7 Days ANDREY MCKEON MD [Staff Physician] - 6 Weeks Prescriptions: amLODIPine 10 mg PO QDAY 30 Days #30 tablet
[2021-02-20] MEDS: PANTOPRAZOLE 40 MG TAB PO SCH (08:40)
[2021-02-20] MEDS: ASPIRIN 325 MG TAB PO SCH (09:09)
[2021-02-20] MEDS: hydroCHLOROthiazide 25 MG TAB PO SCH (09:09)
[2021-02-20] MEDS ORDERED: amLODIPine 10 MG TAB PO SCH (10:00)
[2021-02-20 17:22] VITALS: BP 140/93
--- NOTE | 2021-02-25 14:32 | Electrocardiograph Report ---
[facility] Test Date: 2021-02-18 Test Time: 21:06:08 Pat Name: TELMA GARCIA Department: Room: A486 1 Gender: M [employer] Worker: YENIFER : 1955 Requested By: BRODIE STEINER Order Number: [id number] Reading MD: Wilber Holland Measurements Intervals [place] Rate: 78 P: 50 DE: 176 QRS: 46 QRSD: 92 T: 17 QT: 389 QTc: 445 Interpretive Statements Sinus rhythm Probable LVH with secondary repol abnrm No previous ECG available for comparison Electronically Signed On 02-25-2021 14:31:27 EDT by Wilber Holland
== END 2021-02-20 18:55 | disposition home or self-care (01) ==
LOC: ED 20:27 → 4A 02-19 01:59
PROVIDERS: ADMIT Internal Medicine Geriatric Medicine; ATTEND Student in an Organized Health Care Education/Training Program
DX: G45.9 Transient cerebral ischemic attack, unspecified (principal); H54.7 Unspecified visual loss; R51.9 Headache, unspecified; I10 Essential (primary) hypertension; E11.9 Type 2 diabetes mellitus without complications; K27.9 Peptic ulcer, site unspecified, unspecified as acute or chronic, without hemorrhage or perforation; M10.9 Gout, unspecified; R42 Dizziness and giddiness; R29.818 Other symptoms and signs involving the nervous system; R47.81 Slurred speech; R29.700 NIHSS score 0; Z86.73 Personal history of transient ischemic attack (TIA), and cerebral infarction without residual deficits; Z79.899 Other long term (current) drug therapy; Z98.890 Other specified postprocedural states; Z87.891 Personal history of nicotine dependence
CPT/HCPCS: 36415; 70450; 70496; 70498; 70551; 80048; 80061; 82550; 82553; 82607; 82962; 84443; 84484; 85025; 85610; 85670; 85730; 92523; 92610; 93005; 93306; 93880; 96372; 97116; 97162; 97165; 97530; 99285; G0378; J1644; Q9967